=== PATIENT | female | born 1995 | race Caucasian/White ===

== ENCOUNTER 2016-07-04 10:18 | Observation (INO) ==
[2016-07-04] MEDS ORDERED: PEPCID ONE (10:41)
[2016-07-04] MEDS ORDERED: LR 1,000 ML ONE ×2 (10:41→17:52)
[2016-07-04] MEDS ORDERED: REGLAN ONE (10:41)
[2016-07-04] MEDS ORDERED: XYLOCAINE 1%/EPI 1:100,000 ONE (14:29)
[2016-07-04] MEDS ORDERED: CLINDAMYCIN ONE (14:29)
[2016-07-04] MEDS ORDERED: DIPRIVAN 1% ONE (14:53)
[2016-07-04] MEDS ORDERED: CLINDAMYCIN 600 MG/NS 600 MG/50 ML IVPB ONE (15:24)
[2016-07-04] MEDS: BSS OPHTH SOLN ONE ×2 (15:40→16:37)
[2016-07-04] MEDS ORDERED: FENTANYL ONE (17:05)
[2016-07-04] MEDS ORDERED: VERSED ONE (17:06)
[2016-07-04] MEDS: DILAUDID ONE ×6 (17:18→18:39)
--- NOTE | 2016-07-04 17:34 | OPERATIVE NOTE ---
PROCEDURE DATE: 07/04/2016 PREOPERATIVE DIAGNOSIS: Thyroglossal duct cyst. POSTOPERATIVE DIAGNOSIS: Thyroglossal duct cyst. SURGEON: Jose Daniel Nelson MD STOCK SPECULATOR SURGEON: Ismael Helton MD PROCEDURE: Thyroglossal duct cyst [place] excision. COMPLICATIONS: None. ANESTHESIA: General with endotracheal intubation. DESCRIPTION OF PROCEDURE: The patient was identified, consented, brought to the operating room, placed in supine position where general anesthesia was induced with endotracheal intubation. The neck was prepped and draped in usual sterile fashion. The cyst that was expanding against the left of the midline skin of the anterior neck below the hyoid cartilage was marked in a horizontal fashion for elliptical excision to include the skin around and overlying the cyst. Lidocaine 1% with 1:100,000 epinephrine was injected into that region. Shoulder roll was placed. She was prepped and draped in usual sterile fashion. An elliptical excision was performed around the cyst horizontally and taken down to platysma. Midline dissection followed the tract from the cyst down to the level of the hyoid. Hyoid was then excised centrally with rongeur after being skeletonized over the top and bottom and the cyst tract continued deep to the hyoid bone and down to the tongue base. Palpation intraorally was used to confirm depth from the tongue base to the cyst so as not to proceed intraorally. The cyst and its tract in its entirety were removed in continuity. This wound was then irrigated. Meticulous attention was paid to hemostasis using bipolar electrocautery. The strap muscles were closed in the midline with 4-0 simple interrupted Vicryl. Subcutaneous platysmal and deep dermal simple interrupted 4-0 Vicryl closure was performed and then a layered cutaneous simple interrupted 4-0 Vicryl and subcuticular 4-0 Prolene closure was performed. Separate stab incision was used to bring out a URIEL drain prior to closure. She was allowed to recover from anesthesia. Ascot dressing and gentle pressure dressing was applied. She was allowed to recover from anesthesia, transferred to the recovery room in stable condition. She will be monitored in the ICU overnight. cc: Miah Nelson MD [facility]
[2016-07-04] MEDS ORDERED: PHENERGAN ONE (18:54)
[2016-07-04] MEDS ORDERED: PHENERGAN IV PRN (19:09)
[2016-07-04] MEDS ORDERED: SODIUM CHLORIDE 0.9% INJ PRN (19:09)
[2016-07-04] MEDS: DECADRON IV SCH (20:06)
[2016-07-04] MEDS: PERCOCET-5 PO SCH ×2 (20:06→23:44)
[2016-07-04] MEDS: DILAUDID IV PRN (22:04)
[2016-07-04] MEDS: CLINDAMYCIN 600 MG/NS 600 MG/50 ML IVPB IV SCH (23:44)
[2016-07-05] MEDS: DILAUDID IV PRN (01:30)
[2016-07-05] MEDS: DECADRON IV SCH (03:43)
[2016-07-05] MEDS: PERCOCET-5 PO SCH ×2 (03:43→07:27)
[2016-07-05] MEDS: CLINDAMYCIN 600 MG/NS 600 MG/50 ML IVPB IV SCH (07:27)
[2016-07-05] MEDS ORDERED: DECADRON ONE (07:31)
[2016-07-05] MEDS ORDERED: ZEMURON ONE (07:31)
[2016-07-05] MEDS ORDERED: ZOFRAN ONE (07:31)
[2016-07-05] MEDS ORDERED: NEOSTIGMINE ONE (07:31)
[2016-07-05] MEDS ORDERED: LR 1,000 ML ONE (07:31)
[2016-07-05] MEDS ORDERED: XYLOCAINE-MPF 2% ONE (07:31)
[2016-07-05] MEDS ORDERED: QUELICIN (DOSE) ONE (07:31)
[2016-07-05] MEDS ORDERED: ROBINUL ONE (07:31)
[2016-07-05 07:33] VITALS: BP 108/75
[2016-07-05] MEDS ORDERED: CELEXA PO SCH (09:00)
[2016-07-05] MEDS ORDERED: DOXYCYCLINE PO SCH (09:00)
[2016-07-05] MEDS ORDERED: CLARITIN PO SCH (09:00)
== END 2016-07-05 08:31 | disposition home or self-care (01) ==
LOC: OR 10:18 → INTOOBSV 10:19 → ICU 10:19
PROVIDERS: ADMIT Otolaryngology Otolaryngology/Facial Plastic Surgery; ATTEND Otolaryngology Otolaryngology/Facial Plastic Surgery